=== PATIENT | female | born 1945 | race Caucasian/White ===

== ENCOUNTER 2017-08-10 07:30 | Inpatient (IN) | payer MEDICARE ==
[~2017-08-10] VITALS: Ht 166.4 cm; Wt 82.0 kg
[~2017-08-10 07:30] MED LIST: CHOL100046 PO; LEVO75TA PO; LIOT25TA8 PO; MULT1TAB74 PO; VITE1000C PO
[2017-11-01] MEDS ORDERED: CELE-193 PO (10:57)
[2017-11-01] MEDS ORDERED: FLUT1AER INH (10:57)
[2017-11-01] MEDS ORDERED: MAGN400C PO (10:57)
[2017-11-01] MEDS ORDERED: HYDR-3564 PO (10:57)
[2017-11-01] MEDS ORDERED: CYAN100097 PO (10:57)
[2017-11-01 11:08] LABS: BASOPHILS % (AUTO) 0.3 % (0-1); EOSINOPHILS # (AUTO) 0.4 X10'3 (0-0.9); EOSINOPHILS % (AUTO) 5.3 % (0-6); LYMPHOCYTES # (AUTO) 1.9 X10'3 (1.1-4.8); LYMPHOCYTES % (AUTO) 27.7 % (21-51); MEAN CORPUSCULAR HEMOGLOBIN 31.3 PG (27.0-31.0); MEAN CORPUSCULAR HGB CONC 33.5 % (33.0-36.5); MEAN CORPUSCULAR VOLUME 93.4 FL (78-98); MEAN PLATELET VOLUME 8.7 FL (7.4-10.4); MONOCYTES # (AUTO) 0.7 X10'3 (0-0.9); MONOCYTES % (AUTO) 10.1 % (2-12); NEUTROPHILS # (AUTO) 3.8 X10'3 (1.8-7.7); NEUTROPHILS % (AUTO) 56.6 % (42-75); PRE OP HEMATOCRIT 42.6 % (35.0-45.0); PRE OP HEMOGLOBIN 14.3 g/dL (12.0-16.0); PRE OP PLATELET COUNT 256 X10'3 (140-440); RED BLOOD COUNT 4.56 X10'6 (4.20-5.60); RED CELL DISTRIBUTION WIDTH 13.7 % (11.5-14.5)
[2017-11-01 11:09] LABS: CLARITY,URINE SLIGHTLY CLOUDY (Clear); COLOR,URINE YELLOW (Yellow); GLUCOSE, URINE NEGATIVE (Neg); KETONES,URINE NEGATIVE (Neg); LEUKOCYTE ESTERASE ,URINE NEGATIVE (Neg); NITRITES, URINE NEGATIVE (Neg); OCCULT BLOOD,URINE SMALL (Neg); PH,URINE 5.5 (4.8-8.0); PROTEIN,URINE NEGATIVE (Neg); UROBILINOGEN,URINE 0.2 E.U/dL (0.2-1.0)
[2017-11-01 11:10] LABS: UA COLLECTION TYPE CLN CATCH MIDSTREAM
[2017-11-01 11:17] LABS: MUCUS STRANDS FEW /LPF (Neg); SQUAMOUS EPITHELIAL CELL,UR MODERATE /LPF (FEW)
[2017-11-01 11:18] LABS: PRE OP PROTIME 10.1 SECONDS (9.0-12.0)
[2017-11-01 11:22] LABS: BACTERIA,URINE FEW /HPF (Neg); WBC,URINE 0-4 /HPF (0-4)
[2017-11-01 11:26] LABS: ALBUMIN 3.9 G/DL (3.4-5.0); ALBUMIN/GLOBULIN RATIO 1.3 (1.1-1.5); ALKALINE PHOSPHATASE 68 IU/L (46-116); BLOOD UREA NITROGEN 25 MG/DL (7-18); BUN/CREATININE RATIO 31.6 (6.6-38.0); CALCIUM 8.8 MG/DL (8.5-10.1); CHLORIDE 105 MMOL/L (99-107); CREATININE 0.79 MG/DL (0.40-0.90); PRE OP ALT 26 U/L (30-65); PRE OP ANION GAP 6 (8-16); PRE OP AST 11 U/L (10-37); PRE OP BILIRUB, TOTAL 0.3 MG/DL (0.0-1.0); PRE OP GLUCOSE 108 MG/DL (70-104); PRE OP POTASSIUM 4.3 MMOL/L (3.4-5.1); PRE OP SODIUM 142 MMOL/L (135-145); TOTAL CARBON DIOXIDE 30.7 MMOL/L (24-32); TOTAL PROTEIN 6.9 G/DL (6.4-8.2); eGFR 71 ML/MIN
[2017-11-02] VITALS (17 sets, daily range): BP systolic 88–134; BP diastolic 50–83
[2017-11-02] MEDS ORDERED: ringers solution, lacted 1,000 ML IV SCH ×2 (05:00→12:08)
[2017-11-02] MEDS: levoFLOXACIN-Levaquin 500mg/D5 100 ML IV NR ×2 (05:30→06:55)
[2017-11-02] MEDS ORDERED: VANCOMYCIN INJ 1000 MG in NORMAL SALINE 250ml IV.SOLN IV ONE (05:30)
[2017-11-02] MEDS ORDERED: famotidine 20mg tablet PO ONE (05:30)
[2017-11-02] MEDS ORDERED: albuterol 2.5 MG/3 ML nebule NEB ONE (05:30)
[2017-11-02] MEDS ORDERED: ketorolac trometh. 30mg/ml inj. ONE (06:53)
[2017-11-02] MEDS ORDERED: ROPIVAcaine 0.5% (5mg/ml) 30ml vial ONE ×2 (06:54→09:49)
[2017-11-02] MEDS ORDERED: midazolam 2 mg/2 ml injection ONE (07:20)
[2017-11-02] MEDS ORDERED: epiNEPHrine 1 mg/ml inj ONE (07:21)
[2017-11-02] MEDS ORDERED: MORPHINE SULFATE/PF 0.5 MG/ML 10ML AMPUL ONE (07:21)
[2017-11-02] MEDS ORDERED: propofol 1000mg/100ml bottle 100 ML IV ONE ×2 (07:23)
[2017-11-02] MEDS ORDERED: ondansetron/PF 4mg/2ml inj ONE (09:50)
[2017-11-02] MEDS ORDERED: HYDROcodone/acetaminophen 10/325mg tab PO PRN (12:00)
[2017-11-02] MEDS ORDERED: acetaminophen 325mg tablet PO PRN (12:00)
[2017-11-02] MEDS ORDERED: bisacodyl 10mg suppository rectal RC PRN (12:00)
[2017-11-02] MEDS ORDERED: mag hydrox/Alum hydrox/simeth 30ml oral suspension PO PRN (12:00)
[2017-11-02] MEDS ORDERED: metoclopramide 5 mg/ml inj IV PRN (12:00)
[2017-11-02] MEDS ORDERED: CADD PCA waste documentation MC PRN (12:00)
[2017-11-02] MEDS ORDERED: naloxone 0.4 mg/ml inj IV PRN (12:00)
[2017-11-02] MEDS ORDERED: ondansetron/PF 4mg/2ml inj IV PRN ×2 (12:00→12:10)
[2017-11-02] MEDS ORDERED: magnesium hydroxide 30ml (MOM) UD suspension PO PRN (12:00)
[2017-11-02] MEDS ORDERED: diphenhydrAMINE 25mg capsule PO PRN ×2 (12:00)
[2017-11-02] MEDS ORDERED: proCHLORperazine 10 MG/2 ml inj IV PRN (12:10)
[2017-11-02] MEDS ORDERED: HYDROmorphone inj. 0.5 MG/0.5 ML DISP.SYRIN IV PRN (12:10)
[2017-11-02] MEDS ORDERED: fentaNYL/PF 50MCG/1 ML 2ML syringe IV PRN (12:10)
[2017-11-02] MEDS ORDERED: sodium chloride 0.45% 1,000 ML IV SCH (12:55)
[2017-11-02] MEDS: HYDROmorphone/NS 1 mg/ml CADD 50 ML IV SCH ×7 (13:00→23:00)
[2017-11-02] MEDS: gabapentin 300mg capsule PO SCH ×2 (13:36→21:12)
[2017-11-02] MEDS: potassium cl 20mEq in 1/2 NS 1,000 ML IV SCH ×2 (16:05→20:00)
[2017-11-02] MEDS ORDERED: vancomycin/NS 1 GM ADD-VANTAGE 250 ML IV SCH (20:00)
[2017-11-02] MEDS: ascorbic acid 500mg tablet PO SCH (21:11)
[2017-11-02] MEDS: sennosides 8.6mg tablet PO SCH (21:12)
[2017-11-02] MEDS: sennosides/docusate sodium tablet PO SCH (21:12)
[2017-11-03] MEDS: potassium cl 20mEq in 1/2 NS 1,000 ML IV SCH ×3 (01:00→20:56)
[2017-11-03] MEDS: HYDROmorphone/NS 1 mg/ml CADD 50 ML IV SCH ×12 (01:45→23:00)
[2017-11-03 03:30] VITALS: BP 107/60
[2017-11-03 05:00] VITALS: BP 106/56
[2017-11-03 06:54] LABS: BASOPHILS % (AUTO) 0.3 % (0-1); EOSINOPHILS # (AUTO) 0.4 X10'3 (0-0.9); EOSINOPHILS % (AUTO) 5.2 % (0-6); HEMATOCRIT 32.4 % (35.0-45.0); HEMOGLOBIN 10.9 g/dl (12.0-16.0); LYMPHOCYTES # (AUTO) 1.1 X10'3 (1.1-4.8); LYMPHOCYTES % (AUTO) 13.8 % (21-51); MEAN CORPUSCULAR HEMOGLOBIN 31.2 PG (27.0-31.0); MEAN CORPUSCULAR HGB CONC 33.6 % (33.0-36.5); MEAN CORPUSCULAR VOLUME 92.8 FL (78-98); MEAN PLATELET VOLUME 8.6 FL (7.4-10.4); MONOCYTES % (AUTO) 12.6 % (2-12); NEUTROPHILS # (AUTO) 5.2 X10'3 (1.8-7.7); NEUTROPHILS % (AUTO) 68.1 % (42-75); PLATELET COUNT 176 X10'3 (140-440); RED BLOOD COUNT 3.49 X10'6 (4.20-5.60); RED CELL DISTRIBUTION WIDTH 13.7 % (11.5-14.5); WHITE BLOOD COUNT 7.7 X10'3 (4.5-11.0)
[2017-11-03 07:51] LABS: ANION GAP 5 (8-16); CHLORIDE 106 MMOL/L (99-107); POTASSIUM 5.1 MMOL/L (3.5-5.1); SODIUM 140 MMOL/L (135-145)
[2017-11-03] MEDS ORDERED: levoTHYROXINE 75mcg tablet PO SCH (08:00)
[2017-11-03] MEDS: celeCOXIB 100mg capsule PO SCH (08:37)
[2017-11-03] MEDS: magnesium oxide 400mg tablet PO SCH (08:37)
[2017-11-03] MEDS: ascorbic acid 500mg tablet PO SCH ×2 (08:37→20:50)
[2017-11-03] MEDS: sennosides/docusate sodium tablet PO SCH ×2 (08:37→20:50)
[2017-11-03] MEDS: gabapentin 300mg capsule PO SCH ×3 (08:37→20:50)
[2017-11-03] MEDS: enoxaparin 40mg/0.4ml syringe SQ SCH (08:38)
[2017-11-03] MEDS: cyanocobalamin 500mcg tablet PO SCH (08:38)
[2017-11-03] MEDS: vitamin D (cholecalciferol) 1,000 unit tablet PO SCH (08:38)
[2017-11-03] MEDS: multivitamins, therapeutics tablet PO SCH (08:44)
[2017-11-03 10:00] VITALS: BP 122/54
[2017-11-03] MEDS: levoTHYROXINE 125mcg tablet PO SCH (10:55)
[2017-11-03] MEDS: liothyronine sod 5mcg tablet PO SCH (10:56)
[2017-11-03 14:00] VITALS: BP 122/66
[2017-11-03 18:00] VITALS: BP 147/66
[2017-11-03] MEDS: sennosides 8.6mg tablet PO SCH (20:50)
[2017-11-03 22:00] VITALS: BP 131/66
[2017-11-04] MEDS: HYDROmorphone/NS 1 mg/ml CADD 50 ML IV SCH ×2 (01:55→03:30)
[2017-11-04] MEDS: potassium cl 20mEq in 1/2 NS 1,000 ML IV SCH (04:00)
[2017-11-04 05:00] VITALS: BP 141/67
[2017-11-04] MEDS: HYDROcodone/acetaminophen 10/325mg tab PO PRN ×4 (05:55→20:26)
[2017-11-04 06:03] LABS: BASOPHILS % (AUTO) 0.3 % (0-1); EOSINOPHILS # (AUTO) 0.5 X10'3 (0-0.9); EOSINOPHILS % (AUTO) 5.4 % (0-6); HEMATOCRIT 32.1 % (35.0-45.0); HEMOGLOBIN 10.7 g/dl (12.0-16.0); LYMPHOCYTES % (AUTO) 10.5 % (21-51); MEAN CORPUSCULAR HEMOGLOBIN 31.4 PG (27.0-31.0); MEAN CORPUSCULAR HGB CONC 33.4 % (33.0-36.5); MEAN PLATELET VOLUME 9.3 FL (7.4-10.4); NEUTROPHILS # (AUTO) 6.8 X10'3 (1.8-7.7); NEUTROPHILS % (AUTO) 72.8 % (42-75); PLATELET COUNT 178 X10'3 (140-440); RED BLOOD COUNT 3.42 X10'6 (4.20-5.60); RED CELL DISTRIBUTION WIDTH 13.3 % (11.5-14.5); WHITE BLOOD COUNT 9.3 X10'3 (4.5-11.0)
[2017-11-04] MEDS: gabapentin 300mg capsule PO SCH ×3 (08:19→20:25)
[2017-11-04] MEDS: levoTHYROXINE 125mcg tablet PO SCH (08:19)
[2017-11-04] MEDS: magnesium oxide 400mg tablet PO SCH (08:19)
[2017-11-04] MEDS: sennosides/docusate sodium tablet PO SCH ×2 (08:19→20:26)
[2017-11-04] MEDS: liothyronine sod 5mcg tablet PO SCH (08:19)
[2017-11-04] MEDS: celeCOXIB 100mg capsule PO SCH (08:19)
[2017-11-04] MEDS: multivitamins, therapeutics tablet PO SCH (08:20)
[2017-11-04] MEDS: ascorbic acid 500mg tablet PO SCH ×2 (08:20→20:25)
[2017-11-04] MEDS: enoxaparin 40mg/0.4ml syringe SQ SCH (08:20)
[2017-11-04] MEDS: cyanocobalamin 500mcg tablet PO SCH (08:20)
[2017-11-04] MEDS: vitamin D (cholecalciferol) 1,000 unit tablet PO SCH (08:20)
[2017-11-04 08:34] LABS: ALBUMIN 2.6 G/DL (3.4-5.0); ANION GAP 5 (8-16); BLOOD UREA NITROGEN 16 MG/DL (7-18); BUN/CREATININE RATIO 19.5 (6.6-38.0); CALCIUM 8.5 MG/DL (8.5-10.1); CHLORIDE 105 MMOL/L (99-107); CREATININE 0.82 MG/DL (0.40-0.90); GLUCOSE 144 MG/DL (70-104); POTASSIUM 4.3 MMOL/L (3.5-5.1); SODIUM 140 MMOL/L (135-145); eGFR 68 ML/MIN
[2017-11-04 10:00] VITALS: BP 117/52
[2017-11-04 19:30] VITALS: BP 107/57
[2017-11-04] MEDS: sennosides 8.6mg tablet PO SCH (20:26)
[2017-11-04 22:00] VITALS: BP 105/50
[2017-11-05] MEDS: HYDROcodone/acetaminophen 10/325mg tab PO PRN ×2 (05:44→09:52)
[2017-11-05 06:00] VITALS: BP 110/55
[2017-11-05 07:30] LABS: BASOPHILS % (AUTO) 0.1 % (0-1); EOSINOPHILS # (AUTO) 0.6 X10'3 (0-0.9); EOSINOPHILS % (AUTO) 8.1 % (0-6); HEMATOCRIT 30.7 % (35.0-45.0); HEMOGLOBIN 10.2 g/dl (12.0-16.0); LYMPHOCYTES % (AUTO) 13.1 % (21-51); MEAN CORPUSCULAR HEMOGLOBIN 30.8 PG (27.0-31.0); MEAN CORPUSCULAR HGB CONC 33.2 % (33.0-36.5); MEAN CORPUSCULAR VOLUME 92.8 FL (78-98); MONOCYTES # (AUTO) 0.8 X10'3 (0-0.9); MONOCYTES % (AUTO) 10.7 % (2-12); NEUTROPHILS # (AUTO) 5.2 X10'3 (1.8-7.7); PLATELET COUNT 187 X10'3 (140-440); RED BLOOD COUNT 3.31 X10'6 (4.20-5.60); RED CELL DISTRIBUTION WIDTH 13.3 % (11.5-14.5); WHITE BLOOD COUNT 7.7 X10'3 (4.5-11.0)
[2017-11-05] MEDS: celeCOXIB 100mg capsule PO SCH (09:43)
[2017-11-05] MEDS: liothyronine sod 5mcg tablet PO SCH (09:44)
[2017-11-05] MEDS: magnesium oxide 400mg tablet PO SCH (09:44)
[2017-11-05] MEDS: sennosides/docusate sodium tablet PO SCH (09:45)
[2017-11-05] MEDS: gabapentin 300mg capsule PO SCH (09:45)
[2017-11-05] MEDS: cyanocobalamin 500mcg tablet PO SCH (09:46)
[2017-11-05] MEDS: multivitamins, therapeutics tablet PO SCH (09:46)
[2017-11-05] MEDS: levoTHYROXINE 125mcg tablet PO SCH (09:46)
[2017-11-05] MEDS: ascorbic acid 500mg tablet PO SCH (09:47)
[2017-11-05] MEDS: vitamin D (cholecalciferol) 1,000 unit tablet PO SCH (09:47)
[2017-11-05] MEDS: enoxaparin 40mg/0.4ml syringe SQ SCH (09:49)
== END 2017-11-05 12:05 | disposition home or self-care (01) | DRG 470 ==
LOC: PAS IN 11-02 05:33 → EDSTATUS 11-02 07:30 → ORTHO 4S 11-02 13:11
PROVIDERS: ADMIT Orthopaedic Surgery; ATTEND Orthopaedic Surgery
PROC: 3E0T3BZ Introduction of Anesthetic Agent into Peripheral Nerves and Plexi, Percutaneous Approach (ICD-10-PCS; 2017-11-02)
PROC: 8E0YXBZ Computer Assisted Procedure of Lower Extremity (ICD-10-PCS; 2017-11-02)
PROC: 0SRD0J9 Replacement of Left Knee Joint with Synthetic Substitute, Cemented, Open Approach (ICD-10-PCS; principal; 2017-11-02 08:24)
DX: M17.0 Bilateral primary osteoarthritis of knee (principal); D62 Acute posthemorrhagic anemia; E11.51 Type 2 diabetes mellitus with diabetic peripheral angiopathy without gangrene; J44.9 Chronic obstructive pulmonary disease, unspecified; G89.4 Chronic pain syndrome; M46.1 Sacroiliitis, not elsewhere classified; J45.998 Other asthma; E03.9 Hypothyroidism, unspecified; K21.9 Gastro-esophageal reflux disease without esophagitis; E66.9 Obesity, unspecified; Z88.0 Allergy status to penicillin; Z91.018 Allergy to other foods; Z79.899 Other long term (current) drug therapy; Z87.891 Personal history of nicotine dependence; Z68.29 Body mass index [BMI] 29.0-29.9, adult
CPT/HCPCS: 36415; 80048; 80051; 80053; 81001; 85025; 85610; 85730; 87070; 94640; 94760; 97110; 97116; 97162; 97530; A6250; A6257; A6258; A6449; A7000; C1713; C1758; C1776; J0171; J1170; J1650; J1885; J1956; J2250; J2274; J2405; J2704; J2795; J3370; J3420; J7030; J7120; Q0163

== ENCOUNTER 2019-06-05 10:51 | Emergency (ER) | payer MEDICARE ==
[~2019-06-05] VITALS: Ht 165.1 cm; Wt 84.0 kg
[~2019-06-05 10:51] MED LIST changes: +CELE-193 PO; +CYAN100097 PO; +FLUT1AER INH; +HYDR-3565 PO; +LIOT25TA12 PO; -LIOT25TA8 PO; +MAGN400C PO
[2019-06-05 11:26] VITALS: BP 131/70
[2019-06-05] MEDS ORDERED: dexamethasone sod phosphate 10mg/ml inj IV STA (11:28)
--- NOTE | 2019-06-05 11:32 | NUR ---
stoke alert called off
[2019-06-05] MEDS ORDERED: ACYC-202 PO (12:09)
[2019-06-05] MEDS ORDERED: PRED20TA PO (12:09)
== END 2019-06-05 12:57 | disposition home or self-care (01) ==
LOC: ER 10:51
DX: G51.0 Bell's palsy (principal); M19.90 Unspecified osteoarthritis, unspecified site; Z88.0 Allergy status to penicillin; Z79.899 Other long term (current) drug therapy
CPT/HCPCS: 70450; 71045; 96374; 99284; J1100

== ENCOUNTER 2022-08-05 05:28 | Day surgery (SDC) | payer MEDICARE ==
[2022-08-01 12:32] LABS: CLARITY,URINE CLEAR (Clear); COLOR,URINE YELLOW (Yellow); GLUCOSE, URINE NEGATIVE (Neg); KETONES,URINE NEGATIVE (Neg); LEUKOCYTE ESTERASE ,URINE NEGATIVE (Neg); NITRITES, URINE NEGATIVE (Neg); OCCULT BLOOD,URINE NEGATIVE (Neg); PH,URINE 6.5 (4.8-8.0); PROTEIN,URINE NEGATIVE (Neg); UROBILINOGEN,URINE 0.2 E.U/dL (0.2-1.0)
[2022-08-01 12:41] LABS: UA COLLECTION TYPE CLN CATCH MIDSTREAM
[2022-08-01 12:54] LABS: BASOPHILS % (AUTO) 0.1 % (0-1); EOSINOPHILS # (AUTO) 0.2 X10'3 (0-0.9); EOSINOPHILS % (AUTO) 2.9 % (0-6); LYMPHOCYTES # (AUTO) 1.9 X10'3 (1.1-4.8); LYMPHOCYTES % (AUTO) 29.7 % (21-51); MEAN CORPUSCULAR HEMOGLOBIN 29.4 PG (27.0-31.0); MEAN CORPUSCULAR VOLUME 91.9 FL (78-98); MEAN PLATELET VOLUME 8.6 FL (7.4-10.4); MONOCYTES # (AUTO) 0.7 X10'3 (0-0.9); MONOCYTES % (AUTO) 11.4 % (2-12); NEUTROPHILS # (AUTO) 3.6 X10'3 (1.8-7.7); NEUTROPHILS % (AUTO) 55.9 % (42-75); PRE OP HEMATOCRIT 43.5 % (35.0-45.0); PRE OP HEMOGLOBIN 13.9 g/dL (12.0-16.0); PRE OP PLATELET COUNT 248 X10'3 (140-440); RED BLOOD COUNT 4.73 X10'6 (4.20-5.60); RED CELL DISTRIBUTION WIDTH 16.4 % (11.5-14.5)
[2022-08-01 13:04] LABS: ALBUMIN 3.8 G/DL (3.4-5.0); ALBUMIN/GLOBULIN RATIO 1.3 (1.1-1.5); ALKALINE PHOSPHATASE 75 IU/L (46-116); BLOOD UREA NITROGEN 22 MG/DL (7-18); BUN/CREATININE RATIO 26.5 (6.6-38.0); CALCIUM 9.3 MG/DL (8.5-10.1); CHLORIDE 105 MMOL/L (99-107); CREATININE 0.83 MG/DL (0.40-0.90); PRE OP ALT 16 U/L (30-65); PRE OP ANION GAP 5 (8-16); PRE OP AST 13 U/L (10-37); PRE OP BILIRUB, TOTAL 0.3 MG/DL (0.0-1.0); PRE OP GLUCOSE 81 MG/DL (70-104); PRE OP POTASSIUM 4.4 MMOL/L (3.4-5.1); PRE OP SODIUM 141 MMOL/L (135-145); TOTAL CARBON DIOXIDE 30.6 MMOL/L (24-32); TOTAL PROTEIN 6.7 G/DL (6.4-8.2); eGFR 66 ML/MIN
[~2022-08-05] VITALS: Ht 165.1 cm; Wt 74.5 kg
[2022-08-05] VITALS (7 sets, daily range): BP systolic 124–137; BP diastolic 59–75
[~2022-08-05 05:28] MED LIST changes: -CELE-193 PO; -CYAN100097 PO; -HYDR-3565 PO; -MULT1TAB74 PO; +SIMV-342 PO; -VITE1000C PO; +ringers solution, lacted 1,000 ML IV SCH
[2022-08-05] MEDS ORDERED: albuterol 2.5 MG/3 ML nebule NEB ONE (05:30)
[2022-08-05] MEDS ORDERED: famotidine 20mg tablet PO ONE (05:30)
[2022-08-05] MEDS ORDERED: vancomycin/NS 1 GM in NS 250 ML IV ONE (05:30)
[2022-08-05] MEDS ORDERED: bacitracin 15gm ointment TP ONE ×2 (08:03→09:23)
[2022-08-05] MEDS ORDERED: BUPIVAcaine 0.5% inj/PF 30 ML ONE (08:03)
[2022-08-05] MEDS ORDERED: meperidine/PF 25mg/ml syringe IV PRN ×3 (08:10)
[2022-08-05] MEDS ORDERED: morphine 2 MG/ML inj. syringe IV PRN (08:10)
[2022-08-05] MEDS ORDERED: proCHLORperazine 10 MG/2 ml inj IV PRN (08:10)
[2022-08-05] MEDS ORDERED: ondansetron/PF 4mg/2ml inj IV PRN (08:10)
[2022-08-05] MEDS ORDERED: morphine 4 MG/ML inj SYRINge IV PRN (08:10)
[2022-08-05] MEDS ORDERED: ringers solution, lacted 1,000 ML IV SCH (08:10)
[2022-08-05] MEDS ORDERED: fentaNYL/PF 50MCG/1 ML 2ML syringe ONE (08:20)
[2022-08-05] MEDS ORDERED: midazolam 1 mg/ML 2ml injection ONE (08:21)
[2022-08-05] MEDS ORDERED: propofol inj 20 ML IV ONE (08:21)
[2022-08-05] MEDS ORDERED: dexamethasone sod phosphate 4mg/ml inj. ONE (09:10)
[2022-08-05] MEDS ORDERED: ondansetron/PF 4mg/2ml inj ONE (09:11)
[2022-08-05] MEDS ORDERED: BUPIVAcaine 0.5% inj/PF 30 ml vial IJ ONE (09:23)
--- NOTE | 2022-08-05 09:36 | NUR ---
Received from OR via , accompanied by Anesthesiologist MARQUIS AND OR NURSE and report given by Anesthesiolgist. PT IS DROWSY BUT ABLE TO FOLLOW VERBAL STIMULI. PT RT SURGICAL FOOT IN CORAZON WRAP AND BOOT IN PLACE. 20G TO LT HAND INFUSING PACU LR. PT DENIES PAIN OR DISCOMFORT Addendum: 08/05/22 at 0948 by Telma Camargo RN Amended: Links added.
--- NOTE | 2022-08-05 10:46 | NUR ---
I HAVE REVIEWED D/C INSTRUCTIONS WITH PATIENT AND THEY HAVE VERBALIZED UNDERSTANDING OF INSTRUCTIONS. PATIENT D/C HOME WITH ALL BELONGINGS AND FAMILY GAVE TRANSPORT Addendum: 08/05/22 at 1110 by Telma Camargo RN Amended: Links added.
== END 2022-08-05 10:46 | disposition home or self-care (01) ==
LOC: PAS 05:28
PROVIDERS: ATTEND Podiatrist Foot & Ankle Surgery
DX: M20.21 Hallux rigidus, right foot (principal); M19.071 Primary osteoarthritis, right ankle and foot; M19.90 Unspecified osteoarthritis, unspecified site; E11.51 Type 2 diabetes mellitus with diabetic peripheral angiopathy without gangrene; G89.4 Chronic pain syndrome; E03.9 Hypothyroidism, unspecified; E66.9 Obesity, unspecified; M81.0 Age-related osteoporosis without current pathological fracture; J44.9 Chronic obstructive pulmonary disease, unspecified; Z87.891 Personal history of nicotine dependence; Z88.0 Allergy status to penicillin; Z91.018 Allergy to other foods; Z79.899 Other long term (current) drug therapy; Z90.710 Acquired absence of both cervix and uterus; Z98.890 Other specified postprocedural states; Z87.01 Personal history of pneumonia (recurrent); Z96.652 Presence of left artificial knee joint
CPT/HCPCS: 28750; 36415; 73620; 80053; 81003; 82948; 85025; 93005; A6223; C1713; J1100; J2175; J2250; J2405; J2704; J3010; J3370; J7030; J7120; S0020; Z7506; Z7508; Z7512; 76000; A4215; A4618; A6449; A7000